=== PATIENT | male | born 1990 | race Caucasian/White ===

== ENCOUNTER 2019-01-01 22:03 | Emergency (ER) | payer SELFPAY ==
[2019-01-01] MEDS ORDERED: Acetaminophen TAB* 325 MG PO ONE (22:47)
--- NOTE | 2019-01-01 22:47 | ED ---
Seizure - HPI Summary HPI Summary: Patient complains of 2 episodes of seizure-like activity. First one lasting 3 minutes with quick return to baseline. Second lasting for minutes, with slow return to baseline. Current complaints are nausea and headache. Both seizures witnessed by patient girlfriend. Patient girlfriend states that patient did not recognize her after second seizure. Girlfriend also states patient had 2 episodes of vomiting. Patient declined to come to the ED when EMS arrived after first seizure. Brought to ED by EMS after second seizure. States history of seizures, but has not had one for over a year. States he smokes marijuana to prevent seizures. No other medication for seizures. Denies other medical history. Denies fever, cough, sore throat, CP, SOB, diarrhea abdominal pain, change in urine, change in BM. States he has been smoking less marijuana in the past couple days. Denies EtOH, or other recreational drug use. - History Of Current Complaint Chief Complaint: EDSeizure Time Seen by Provider: 01/01/19 22:23 Hx Obtained From: Patient, Family/Bee Tender Onset/Duration: Sudden Onset, Lasting Minutes Severity Of Seizure: Self-Limited Location Of Seizure: All Extremities Aggravating Factor(s): Nothing Alleviating Factor(s): Spontaneous Resolution Associated Signs And Symptoms: Negative - Allergies/Home Medications Allergies/Adverse Reactions: Allergies Allergy/AdvReac Type Severity Reaction Status Date / Time No Known Allergies Allergy Verified 01/01/19 22:14 PMH/Surg Hx/FS Hx/Imm Hx Endocrine/Hematology History: Denies: Hx Anticoagulant Therapy Cardiovascular History: Denies: Hx Pacemaker/ICD History: Denies: Hx Dialysis Sensory History: Denies: Hx Eye Prosthesis Opthamlomology History: Denies: Hx Legally Blind EENT History: Denies: Hx Deafness Infectious Disease History: No Infectious Disease History: Denies: Traveled Outside the [place] in Last 30 Days - Social History Alcohol Use: None Substance Use Type: Reports: None Smoking Status (MU): Heavy Every Day Tobacco Smoker Review of Systems Constitutional: Negative Eyes: Negative ENT: Negative Cardiovascular: Negative Respiratory: Negative Positive: Nausea Genitourinary: Negative Musculoskeletal: Negative Skin: Negative Positive: Headache Psychological: Normal All Other Systems Reviewed And Are Negative: Yes Physical Exam - Summary Physical Exam Summary: Neuro exam normal. No evidence of trauma noted to mouth, face, head. Patient moving all 4 extremities freely. No pain with palpation of abdomen, chest wall or back. Full range of motion of neck and jaw. Triage Information Reviewed: Yes Vital Signs On Initial Exam: Initial Vitals Temp Pulse Resp BP Pulse Ox 98 F 75 26 126/62 96 01/01/19 22:04 01/01/19 22:04 01/01/19 22:04 01/01/19 22:04 01/01/19 22:04 Vital Signs Reviewed: Yes Appearance: Positive: Well-Appearing Skin: Positive: Warm Head/Face: Positive: Normal Head/Face Inspection Eyes: Positive: Normal ENT: Positive: Normal ENT inspection Dental: Negative: Dental Fracture @, Bleeding Neck: Positive: Supple Respiratory/Lung Sounds: Positive: Clear to Auscultation Cardiovascular: Positive: Normal Abdomen Description: Positive: Nontender Musculoskeletal: Positive: Normal Neurological: Positive: Normal Psychiatric: Positive: Normal AVPU Assessment: Alert - [place] Coma Scale Best Eye Response: 4 - Spontaneous Best Motor Response: 6 - Obeys Commands Best Verbal Response: 5 - Oriented Coma Scale Total: 15 Diagnostics - Vital Signs Vital Signs Temp Pulse Resp BP Pulse Ox 01/01/19 22:09 75 15 97 01/01/19 22:07 75 26 126/62 96 01/01/19 22:04 98 F 75 26 126/62 96 - Laboratory Result Diagrams: 01/01/19 22:55 01/01/19 22:55 Lab Statement: Any lab studies that have been ordered have been reviewed, and results considered in the medical decision making process. Course/Dx - Course Course Of Treatment: Patient complains of 2 episodes of seizure-like activity. First one lasting 3 minutes with quick return to baseline. Second lasting for minutes, with slow return to baseline. Current complaints are nausea and headache. Both seizures witnessed by patient girlfriend. Patient girlfriend states that patient did not recognize her after second seizure. Girlfriend also states patient had 2 episodes of vomiting. Patient declined to come to the ED when EMS arrived after first seizure. Brought to ED by EMS after second seizure. States history of seizures, but has not had one for over a year. States he smokes marijuana to prevent seizures. No other medication for seizures. Denies other medical history. Denies fever, cough, sore throat, CP, SOB, diarrhea abdominal pain, change in urine, change in BM. States he has been smoking less marijuana in the past couple days. Denies EtOH, or other recreational drug use. Vital signs within normal limits, with a brief episode of hypotension which self resolved. WBC 18.8. Labs otherwise unremarkable. Patient refused to provide urine. CT brain negative. No significant seizures witnessed to the ED. Patient started on Keppra 500 mg IV here in the ED. Rx for 500 mg by mouth twice a day. Follow-up with neurologist. Patient girlfriend has neurologist Dr. Ash, requested same for patient. - Diagnoses Provider Diagnoses: Seizure Discharge - Sign-Out/Discharge Documenting (check all that apply): Patient Departure Patient Received Moderate/Deep Sedation with Procedure: No - Discharge Plan Condition: Critical Disposition: HOME Prescriptions: levETIRAcetam [Keppra] 500 mg PO BID 30 Days #60 tablet Patient Education Materials: Recurrent Seizures in Adults (ED) Forms: *Work Release Referrals: No Primary Care Phys,NOPCP [Primary Care Provider] - Niall Ash MD [Medical Doctor] - Additional Instructions: Take Keppra twice a day as directed for seizures. Follow-up with neurologist Dr. Ash for further evaluation. Return to the ED for any new or worsening symptoms. - Billing Disposition and Condition Condition: CRITICAL Disposition: Home
[2019-01-01] MEDS ORDERED: Ondansetron ODT TAB* 4 MG PO ONE (23:00)
[2019-01-01 23:05] LABS: ABS Basophils 0.1 10^3/ul (0-0.2); ABS Lymphocytes 1.1 10^3/ul (1.0-4.8); ABS Monocytes 1.2 10^3/ul (0-0.8); ABS Neutrophils 16.4 10^3/ul (1.5-7.7); Eosinophil % 0.2 %; Hematocrit 41 % (42-52); Hemoglobin 13.8 g/dL (14.0-18.0); Lymphocyte % 5.8 %; Mean Corpuscular HGB Conc 34 g/dL (31-36); Mean Corpuscular Hemoglobin 30 pg (27-31); Mean Corpuscular Volume 89 fL (80-94); Mean Platelet Volume 8.1 fL (7.4-10.4); Platelet Count 197 10^3/uL (150-450); Red Blood Count 4.61 10^6 /uL (4.18-5.48); Red Cell Distribution Width 13 % (10-15); White Blood Count 18.8 10^3/uL (3.5-10.8)
[2019-01-01 23:20] LABS: ALT 23 U/L (7-52); AST 29 U/L (13-39); Albumin 4.4 g/dL (3.2-5.2); Albumin/Globulin Ratio 1.9 (1-3); Alkaline Phosphatase 32 U/L (34-104); Anion Gap 7 mmol/L (2-11); BUN/Creatinine Ratio 18.3 (8-20); Blood Urea Nitrogen 19 mg/dL (6-24); C Reactive Protein < 1.00 mg/L (<8.01); CO2 Carbon Dioxide 25 mmol/L (22-32); Calcium 9.6 mg/dL (8.6-10.3); Chloride 105 mmol/L (101-111); EGFR African American 103.7 (>60); EGFR Non-African American 85.7 (>60); Globulin 2.3 g/dL (2-4); Glucose 116 mg/dL (70-100); Potassium 3.8 mmol/L (3.5-5.0); Sodium 137 mmol/L (135-145); Total Protein 6.7 g/dL (6.4-8.9)
[2019-01-01] MEDS ORDERED: Ondansetron INJ* 2 MG/ML VIAL IV ONE (23:22)
[2019-01-02 00:15] LABS: Alcohol < 10 mg/dL (<10)
[2019-01-02] MEDS ORDERED: levETIRAcetam 500 MG IVPREMIX* 500 MG/100 ML BAG IVPB ONE (00:26)
[2019-01-02 01:25] VITALS: BP 110/59
== END 2019-01-02 01:24 | disposition home or self-care (01) ==
LOC: ED 22:03
DX: R56.9 Unspecified convulsions (principal); R11.0 Nausea; R51 Headache; F17.200 Nicotine dependence, unspecified, uncomplicated
CPT/HCPCS: 36415; 70450; 80053; 80320; 85025; 86140; 96365; 96375; 99284; A9270-GY; G0480; J2405